=== PATIENT | male | born 1990 | race Caucasian/White ===

== ENCOUNTER 2021-09-24 14:16 | Emergency (ER) | payer MEDICAID ==
[2021-09-24 14:24] VITALS: BP 157/93
[2021-09-24] MEDS ORDERED: DEXAMETHASONE 10 MG/ML VIAL PO STA (17:05)
[2021-09-24] MEDS ORDERED: CHERRY SYRUP 10 ML UDC PO ONE (17:05)
--- NOTE | 2021-09-24 17:08 | ED Physician Documentation ---
PD HPI HEENT - Stated complaint Stated Complaint: SWOLLEN FACE - Chief complaint Chief Complaint: Heent - History obtained from History obtained from: Patient - History of Present Illness Timing - onset: How many days ago (2) Timing - duration: Days (2) Timing - details: Gradual onset, Still present Location: Sinuses Improves: Nothing Associated symptoms: Congestion, Facial swelling. No: Fever, Rhinorrhea, Trismus, Swollen nodes, Headache, Cough Similar symptoms before: Has not had sx before Recently seen: Not recently seen - Additional information Additional information: 31-year-old male has developed some pain at the nasolabial fold on the right side of his face. He has developed swelling to this right side of his face and this has worsened overnight and he is coming now for evaluation. He has not had fever he does not have a history of sinusitis. He denies any trouble with his teeth and he has not had drainage. Has not had a cough. He believes he is breathing through his nose well. Review of Systems Constitutional: denies: Fever, Chills, Myalgias Eyes: denies: Decreased vision Ears: denies: Ear pain Nose: reports: Congestion, Sinus pressure / pain. denies: Rhinorrhea / runny nose Throat: denies: Dental pain / toothache, Oral lesions / sores, Sore throat Cardiac: denies: Chest pain / pressure, Palpitations Respiratory: denies: Dyspnea, Cough PD PAST MEDICAL HISTORY - Present Medications Home Medications: Ambulatory Orders Medication Instructions Recorded Confirmed Amox/Clav 875/125 [Augmentin] 1 each PO Q12H #20 tablet 09/24/21 - Allergies Allergies/Adverse Reactions: Allergies Allergy/AdvReac Type Severity Reaction Status Date / Time No Known Drug Allergies Allergy Verified 09/24/21 14:20 - Social History Does the pt smoke?: No Smoking Status: Former smoker PD ED PE NORMAL - Vitals Vital signs reviewed: Yes - General General: Alert and oriented X 3, No acute distress, Well developed/nourished - HEENT HEENT: Atraumatic (Hypertensive), PERRL, EOMI, Pharynx benign, Dentition benign, Other (Cerumen impaction bilaterally. There is swelling to the right face over the right maxillary sinus. There is point tenderness. There is no tenderness to the gumline or the upper teeth. The upper teeth are intact and there is no drai nage. There is no overlying erythema.) - Neck Neck: Supple, no meningeal sign, No bony TTP - Cardiac Cardiac: RRR, No murmur - Respiratory Respiratory: No respiratory distress, Clear bilaterally - Abdomen Abdomen: Soft, Non tender - Back Back: No CVA TTP, No spinal TTP - Derm Derm: Normal color, Warm and dry, No rash - Extremities Extremities: No deformity, No edema - Neuro Neuro: Alert and oriented X 3, general counsel 2-12 intact, No motor deficit, No sensory deficit, Normal speech Eye Opening: Spontaneous Motor: Obeys Commands Verbal: Oriented GCS Score: 15 - Psych Psych: Normal mood, Normal affect Results - Vitals Vitals: Vital Signs - 24 hr 09/24/21 14:21 Temperature 36.6 C Heart Rate 91 Respiratory 18 Rate Blood Pressure 157/93 H O2 Saturation 100 Oxygen O2 Source Room air PD MEDICAL DECISION MAKING - ED course Complexity details: considered differential, d/w patient ED course: Previously well 31-year-old male has developed some swelling to the right side of his face and has point tenderness and swelling over the right maxillary si nus. He does not have facial numbness and he does not have tenderness to the teeth or gums under the underlying area. He is treated in the emerge department with 10 [address] will [address] him on a course of Augmentin. Departure - Departure Disposition: 01 Home, Self Care Clinical Impression: Maxillary sinusitis, acute Qualifiers: Recurrence: non-recurrent Qualified Code(s): J01.00 - Acute maxillary sinusitis, unspecified Condition: Stable Instructions: ED Sinusitis Abx Tx Follow-Up: [facility] [Provider Group] Prescriptions: Amox/Clav 875/125 [Augmentin] 1 each PO Q12H #20 tablet Comments: Isaías, today it looks like there is infection in the right maxillary sinus. The expectation with treatment is that your swelling and pain will resolve relatively rapidly within 1 to 3 days. If you have recurrence of symptoms or develop new symptoms follow-up here or with the primary care office in [facility].Your prescription has been E scribed to [facility] pharmacy.
== END 2021-09-24 17:18 | disposition home or self-care (01) ==
LOC: ED 14:16
DX: J01.00 Acute maxillary sinusitis, unspecified (principal); H61.23 Impacted cerumen, bilateral; Z87.891 Personal history of nicotine dependence
CPT/HCPCS: 99282; 99283; A9270

== ENCOUNTER 2022-09-08 15:36 | Emergency (ER) | payer MEDICAID ==
[2022-09-08 16:02] LABS: BILIRUBIN,URINE NEGATIVE (NEGATIVE); CLARITY,URINE HAZY (CLEAR); GLUCOSE, URINE (UA) NEGATIVE (NEGATIVE); KETONES,URINE (UA) NEGATIVE (NEGATIVE); LEUKOCYTE ESTERASE, URINE NEGATIVE (NEGATIVE); NITRITE,URINE NEGATIVE (NEGATIVE); OCCULT BLOOD,URINE SMALL (NEGATIVE); PROTEIN,URINE TRACE mg/dL (NEGATIVE); UROBILINOGEN,URINE 1 (NORMAL) E.U./dL (NORMAL)
[2022-09-08 16:08] LABS: BASOPHILS % (AUTO) 0.6 %; EOSINOPHILS % (AUTO) 0.4 %; HGB - HEMOGLOBIN 14.8 g/dL (14.0-18.0); LYMPHOCYTES # (AUTO) 0.6 10^3/uL (1.5-3.5); LYMPHOCYTES % (AUTO) 8.5 %; MEAN CORPUSCULAR HEMOGLOBIN 27.9 pg (27.0-31.0); MEAN CORPUSCULAR HGB CONC 34.4 g/dL (32.0-36.0); MEAN CORPUSCULAR VOLUME 81.1 fL (80.0-94.0); MEAN PLATELET VOLUME 9.6 fL (7.4-11.4); MONOCYTES # (AUTO) 0.8 10^3/uL (0.0-1.0); MONOCYTES % (AUTO) 10.9 %; NEUTROPHILS # (AUTO) 5.5 10^3/uL (1.5-6.6); NEUTROPHILS % (AUTO) 79.3 %; PLT - PLATELET COUNT 199 10^3/uL (130-450); RED CELL DISTRIBUTION WIDTH 13.2 % (12.0-15.0)
[2022-09-08 16:18] LABS: BACTERIA,URINE None Seen /HPF (None Seen); SQUAMOUS EPITHELIAL CELL,UR NONE SEEN (<= Few); WBC,URINE 0-3 /HPF (0-3)
[2022-09-08 16:23] LABS: ALBUMIN 4.5 g/dL (3.2-5.5); ALBUMIN/GLOBULIN RATIO 1.5 (1.0-2.2); BILIRUBIN,TOTAL 0.9 mg/dL (0.2-1.0); CALCIUM 8.8 mg/dL (8.5-10.3); CREATININE 0.9 mg/dL (0.6-1.2); POTASSIUM 3.2 mmol/L (3.5-5.0); TOTAL PROTEIN 7.5 g/dL (6.7-8.2)
[2022-09-08] MEDS: ACETAMINOPHEN 325 MG TABLET PO STA (19:14)
[2022-09-08 19:31] VITALS: BP 152/67
--- NOTE | 2022-09-08 19:36 | ED Physician Documentation ---
History of Present Illness - Stated complaint Stated Complaint: CHILLS/COUGH/ABD PX - Chief complaint Chief Complaint: Abd Pain - Additonal information Additional information: This is a 32-year-old male who presents with 3 days of mild generalized abdominal discomfort, nausea, occasional vomiting, cough and sore throat, body aches and fever. He has not had any respiratory distress, and he denies any focal abdominal pain, no dysuria or other urinary symptoms, no rash. No known sick contacts.He has not attempted any medication at home but was given Tylenol shortly before my assessment. Review of Systems Ten Systems: 10 systems reviewed and negative PD PAST MEDICAL HISTORY - Past Medical History Past Medical History: No - Past Surgical History Past Surgical History: No - Present Medications Home Medications: Ambulatory Orders Medication Instructions Recorded Confirmed Amox/Clav 875/125 [Augmentin] 1 each PO Q12H #20 tablet 09/24/21 - Allergies Allergies/Adverse Reactions: Allergies Allergy/AdvReac Type Severity Reaction Status Date / Time No Known Drug Allergies Allergy Verified 09/08/22 15:46 - Social History Does the pt smoke?: No Smoking Status: Never smoker Does the pt drink ETOH?: No Does the pt have substance abuse?: No - Immunizations Immunizations are current?: Yes - POLST Patient has POLST: No PD ED PE NORMAL - Vitals Vital signs reviewed: Yes - General General: Alert and oriented X 3, No acute distress, Well developed/nourished - HEENT HEENT: Atraumatic, Ears normal, Moist mucous membranes, Pharynx benign - Neck Neck: Supple, no meningeal sign, No JVD - Cardiac Cardiac: RRR, No murmur, No gallop, No rub - Respiratory Respiratory: No respiratory distress, Clear bilaterally - Abdomen Abdomen: Normal bowel sounds, Soft, Non tender, Non distended, No organomegaly - Derm Derm: Normal color, Warm and dry, No rash - Extremities Extremities: No deformity, No tenderness to palpate - Neuro Neuro: Alert and oriented X 3 Eye Opening: Spontaneous Motor: Obeys Commands Verbal: Oriented GCS Score: 15 - Psych Psych: Normal mood, Normal affect Results - Vitals Vitals: Vital Signs - 24 hr 09/08/22 09/08/22 09/08/22 15:42 19:05 19:31 Temperature 36.0 C L 38.9 C H 38.9 C H Heart Rate 93 97 103 H Respiratory 20 16 16 Rate Blood Pressure 168/94 H 174/88 H 152/67 H O2 Saturation 98 98 100 Oxygen O2 Source Room air - Labs Labs: Laboratory Tests 09/08/22 09/08/22 09/08/22 15:51 16:04 16:04 WBC 7.0 RBC 5.30 Hgb 14.8 Hct 43.0 MCV 81.1 MCH 27.9 MCHC 34.4 RDW 13.2 Plt Count 199 MPV 9.6 Neut # (Auto) 5.5 Lymph # (Auto) 0.6 L Ocean # (Auto) 0.8 Eos # (Auto) 0.0 Baso # (Auto) 0.0 Absolute Nucleated RBC 0.00 Nucleated RBC % 0.0 Sodium 136 Potassium 3.2 L Chloride 99 L Carbon Dioxide 26 Anion Gap 11.0 BUN 8 Creatinine 0.9 Estimated GFR (MDRD) 98 Glucose 107 H Calcium 8.8 Total Bilirubin 0.9 AST 26 ALT 24 Alkaline Phosphatase 87 Total Protein 7.5 Albumin 4.5 Globulin 3.0 Albumin/Globulin Ratio 1.5 Lipase 28 Urine Color YELLOW Urine Clarity HAZY Urine pH 6.0 Ur Specific [place] >=1.030 H Urine Protein TRACE Urine Glucose (UA) NEGATIVE Urine Ketones NEGATIVE Urine Occult Blood SMALL H Urine Nitrite NEGATIVE Urine Bilirubin NEGATIVE Urine Urobilinogen 1 (NORMAL) Ur Leukocyte Esterase NEGATIVE Urine RBC 6-10 H Urine WBC 0-3 Ur Squamous Epith Cells NONE SEEN Urine Bacteria None Seen Ur Microscopic Review INDICATED Urine Culture Comments NOT INDICATED Influenza A (Rapid) Influenza B (Rapid) 09/08/22 19:06 WBC RBC Hgb Hct MCV MCH MCHC RDW Plt Count MPV Neut # (Auto) Lymph # (Auto) Ocean # (Auto) Eos # (Auto) Baso # (Auto) Absolute Nucleated RBC Nucleated RBC % Sodium Potassium Chloride Carbon Dioxide Anion Gap BUN Creatinine Estimated GFR (MDRD) Glucose Calcium Total Bilirubin AST ALT Alkaline Phosphatase Total Protein Albumin Globulin Albumin/Globulin Ratio Lipase Urine Color Urine Clarity Urine pH Ur Specific [place] Urine Protein Urine Glucose (UA) Urine Ketones Urine Occult Blood Urine Nitrite Urine Bilirubin Urine Urobilinogen Ur Leukocyte Esterase Urine RBC Urine WBC Ur Squamous Epith Cells Urine Bacteria Ur Microscopic Review Urine Culture Comments Influenza A (Rapid) POSITIVE H Influenza B (Rapid) Negative PD MEDICAL DECISION MAKING - ED course Complexity details: re-evaluated patient, considered differential, d/w patient ED course: Patient presented as per HPI with 3 days of generalized abdominal pain, fever, cough and URI symptoms. He is well-appearing on physical exam the febrile and appears in no acute distress. His physical exam is reassuring, there is no focal abdominal tenderness or guarding, is breathing comfortably on room air. His labs were done before I saw the patient and these are stable including CBC and CMP and urinalysis however patient does have influenza A which is likely the cause of his symptoms. I discussed with patient and supportive measures including Tylenol, ibuprofen and [id number] cough or cold medication, plenty of rest and oral fluids. 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 I discussed return precautions in detail with the patient. Departure - Departure Disposition: 01 Home, Self Care Clinical Impression: Influenza A Condition: Good Instructions: ED Flu Comments: As we discussed, you have influenza A. This can cause upset stomach, sometimes nausea, vomiting, diarrhea, cough or cold symptoms, sore throat, body aches and fever. Typically lasts about a week and resolves on its own. You can take ibuprofen and Tylenol to help with the body aches and fevers and you can alternate these throughout the day. You can use [id number] cough or flu medicine if desired as well. Otherwise you need to get a lot of rest, you are likely going to be tired the next several days and try to stay well-hydrated with oral fluids. Forms: Activity restrictions
== END 2022-09-08 19:39 | disposition home or self-care (01) ==
LOC: ED 15:36
DX: J10.1 Influenza due to other identified influenza virus with other respiratory manifestations (principal)
CPT/HCPCS: 36415; 80053; 81001; 83690; 85025; 87275; 87276; 99282; 99283; A9270; 81003; 87086

== ENCOUNTER 2022-11-25 22:19 | Emergency (ER) | payer MEDICAID ==
[2022-11-25 22:25] VITALS: BP 183/91
[2022-11-25] MEDS ORDERED: LIDOCAINE OINTMENT 5% 35.44 GM TUBE TOP STA (22:56)
[2022-11-25] MEDS ORDERED: ACYCLOVIR 200 MG CAPSULE PO STA (22:57)
[2022-11-25] MEDS ORDERED: oxyCODONE/ACET 5/325 Prepack 4 PO STA (22:58)
--- NOTE | 2022-11-25 23:07 | ED Physician Documentation ---
History of Present Illness - Stated complaint Stated Complaint: SWOLLEN LIP - Chief complaint Chief Complaint: Wound - Additonal information Additional information: Patient 32-year-old male presenting to the emergency department with lower lip swelling. Reports had what he believed was a pimple or a cold sore. Popped it and is subsequently developed increasing swelling and pain around the area as well as with dark discoloration. Denies previous episodes of cold sores either oral or genital. Reports has been feeling fatigued but denies fever, chills, chest pain, shortness of breath, abdominal pain, nausea compartment, diarrhea, constipation. Review of Systems Constitutional: denies: Fever Eyes: denies: Loss of vision Ears: denies: Loss of hearing Nose: denies: Rhinorrhea / runny nose Throat: reports: Oral lesions / sores. denies: Sore throat Respiratory: denies: Dyspnea GI: denies: Abdominal Pain : denies: Dysuria PD PAST MEDICAL HISTORY - Past Surgical History Past Surgical History: Yes General: Cholecystectomy - Present Medications Home Medications: Ambulatory Orders Medication Instructions Recorded Confirmed Amox/Clav 875/125 [Augmentin] 1 each PO Q12H #20 tablet 09/24/21 Acyclovir 400 mg PO TID #15 tablet 11/25/22 Lidocaine Topical 4% [[id number] 4 ml TP Q8HR #8 ml 11/25/22 Kit 4%] - Allergies Allergies/Adverse Reactions: Allergies Allergy/AdvReac Type Severity Reaction Status Date / Time No Known Drug Allergies Allergy Verified 09/08/22 15:46 - Social History Does the pt smoke?: No Smoking Status: Never smoker Does the pt drink ETOH?: No Does the pt have substance abuse?: No - Immunizations Immunizations are current?: Yes - POLST Patient has POLST: No PD ED PE NORMAL - Vitals Vital signs reviewed: Yes - General General: Alert and oriented X 3, No acute distress - HEENT HEENT: Atraumatic, Other (There is a prominent amount of swelling and induration to the lower lip. There is a 0.5 cm x 0.5 Centimeters ulceration on the mid right of the lip with an area of necrosis at its base. ) Results - Vitals Vitals: Vital Signs - 24 hr 11/25/22 22:23 Temperature 37 C Heart Rate 86 Respiratory 16 Rate Blood Pressure 183/91 H O2 Saturation 97 Oxygen O2 Source Room air PD Medical Decision Making - ED course ED course: Patient 32-year-old male presenting to the emergency department with swelling and ulcerated lower lip. Reported an area of swelling and induration that he thought was a pimple and popped it subsequently developing increasing swelling, pain and an area of dark discoloration at the base of the ulceration. Overall presentation is most consistent with acute herpes simplex or herpangina. No other oral lesions. Patient endorsed for fatigue but no fever or chills. He had no neck stiffness, reported headache or areas of confusion that would be of concern for herpes encephalitis. Will initiate course acyclovir as well as topical lidocaine for symptomatic management. Patient also provided for Percocet from the emergency department for pain management. Will provide contact information for follow-up with local area MD to establish primary care. Discussion had about the infectious nature of herpes simplex infections. Encouraged that he avoid women, elderly, and firm and that he remained masked and covered at all times while in public. Otherwise clear return precautions were given prior to discharge. Departure - Departure Disposition: 01 Home, Self Care Clinical Impression: Herpangina Instructions: ED Herpes Simplex Virus Type 1 Follow-Up: Floyd Chang MD [Provider Admit Priv/Credential] - Prescriptions: Lidocaine Topical 4% [[id number] Kit 4%] 4 ml TP Q8HR #8 ml Acyclovir 400 mg PO TID #15 tablet Comments: Thank you for allowing us to care for you today at [facility]. Today in the emergency department you are diagnosed with acute herpangina, this is a primary herpes simplex infection that often demonstrates itself in the form of tender and painful cord sores. It is important that you try to avoid touching or scratching your sore. Please be aware that this is infectious and can be dangerous particularly to women in early as well as to the elderly. I recommend keeping your face cove red with a mask when around others. I will be discharging with prescriptions which are been sent to [facility]. These included topical antibiotic ointment as well as a course of an oral antiviral medication. Please follow-up with your primary care doctor. If you are needed by primary care doctor I have included contact information for Dr. Floyd Graf. Please call him first thing tomorrow to establish care. If it anytime you have new or worsening symptoms please do not hesitate to return.
== END 2022-11-25 23:15 | disposition home or self-care (01) ==
LOC: ED 22:19
DX: B08.5 Enteroviral vesicular pharyngitis (principal)
CPT/HCPCS: 99282; 99283; A9270